=== PATIENT | male | born 1960 | race Caucasian/White ===

== ENCOUNTER 2020-10-05 17:37 | Emergency (ER) | payer BC, SELFPAY ==
--- NOTE | ~2020-10-05 | XR_ITS ---
EXAMINATION: XR chest 1V portable DATE: 10/05/2020 18:29 INDICATION: Chest pain and tightness, shortness of breath. TECHNIQUE: frontal view of the chest was obtained. COMPARISON: Chest radiograph dated 05/01/2005 FINDINGS: The lungs remain clear with no focal airspace opacities, pulmonary edema, pleural effusion or pneumot horax. The cardiomediastinal silhouette is normal. Visualized bones and soft tissues are unremarkable . IMPRESSION: 1. No acute cardiopulmonary disease. Reviewed, dictated and finalized at location H. UCE SERVICE TEAM MEMBER
[2020-10-05 17:46] VITALS: BP 145/80; PULSE 105; RESP 20; TEMP 36.6; O2SAT 95
--- NOTE | 2020-10-05 17:46 | ECG_ITS ---
Measurements Intervals [place] Rate: 80 P: 32 MA: 192 QRS: -41 QRSD: 114 T: 55 QT: 357 QTc: 414 Interpretive Statements SINUS RHYTHM LEFT AXIS DEVIATION INTRAVENTRICULAR CONDUCTION DELAY BORDERLINE R WAVE PROGRESSION, ANTERIOR LEADS BORDERLINE ECG Electronically Signed On 10-05-2020 18:55:08 DIRECTOR WEB by Wilbert Guaman D.O.
[2020-10-05 18:17] LABS: Basophils Absolute Auto 0.04 K/mm3 (0.00-0.10); Basophils Percent Auto 0.6 % (0.0-1.0); Eosinophils Absolute Auto 0.02 K/mm3 (0.02-0.50); Eosinophils Percent Auto 0.3 % (1.0-6.0); Hematocrit 47.9 % (40.0-54.0); Hemoglobin 17.4 g/dL (14.0-18.0); Immature Granulocyte Absolute 0.18 K/mm3 (0.00-0.00); Immature Granulocyte Percent A 2.5 % (0.0-0.0); Lymphocytes Absolute Auto 0.87 K/mm3 (1.10-4.50); Mean Corpuscular HGB Conc 36.3 g/dL (32.0-36.0); Mean Corpuscular Hemoglobin 34.5 pg (27.0-31.0); Mean Corpuscular Volume 94.9 fL (78.0-102.0); Mean Platelet Volume 10.3 fl (8.7-11.0); Monocytes Absolute Auto 0.72 K/mm3 (0.10-0.90); Monocytes Percent Auto 9.9 % (2.0-11.0); Neutrophils Absolute Auto 5.4 K/mm3 (1.7-7.2); Neutrophils Percent Auto 74.7 % (50.0-70.0); Platelet Count Result 176 K/mm3 (150-420); Red Blood Count 5.05 M/mm3 (4.70-6.10); White Blood Count 7.3 K/mm3 (4.8-10.8)
[2020-10-05 18:18] LABS: Base Excess ABG -0.1 mmol/L (0-2); HCO3 ABG 23.1 mmol/L (23-29); Oxygen Content ABG 23.8 %vol (16.0-22.0); Oxygen Saturation ABG 96.3 % (95-97); Oxyhemoglobin 95.8 % (94-100); PCO2 ABG 34.3 mmHg (35-45); PO2 ABG 76.4 mmHg (80-90); Total Hemoglobin 17.7 g/dL; pH ABG 7.45 (7.35-7.45)
[2020-10-05 18:19] LABS: Device ROOM AIR; Modified Allen's Test Pass; Site Drawn RIGHT RADIAL
[2020-10-05 18:32] LABS: D Dimer 0.29 mg/L (0.19-0.50)
[2020-10-05 18:34] LABS: Anion Gap 9 mmol/L (8-16); Blood Urea Nitrogen 17 mg/dL (7-18); Calcium 8.6 mg/dL (8.5-10.1); Carbon Dioxide 26 mmol/L (21-32); Chloride 99 mmol/L (98-108); Estimated CRCL calculation 72 ml/min; Estimated Glomerular Filt Rate 59; Glucose 163 mg/dL (70-99); Osmolality Calculated 283 mOsm/kg (285-295); Potassium 3.4 mmol/L (3.5-5.1); Sodium 134 mmol/L (136-145)
[2020-10-05 18:35] LABS: Troponin I < 0.02 ng/mL (0.00-0.056)
[2020-10-05 18:38] LABS: BNP 15 pg/mL (0-100)
--- NOTE | 2020-10-05 19:07 | ED.GENADULT ---
HPI - General Adult General Chief complaint: Chest Pain Stated complaint: tightness in chest Source: patient Mode of arrival: ambulatory Limitations: no limitations History of Present Illness HPI narrative: Patient wishes to be seen due to diagnosis of Covid, and concerns he may be getting worse. He had some mild abdominal discomfort which he calls tightness. He evidently call his doctors office and was told to come in to be seen. Discomfort is mild, ongoing, not associated with and chest pain or shortness of breath, and not relieved by measures taken at home. This has been going on since early this am< for several hours. Related Data Home Medications Medication Instructions Recorded Confirmed abatacept [Orencia] 125 mg SUBCUT WEEKLY 10/05/20 10/05/20 amlodipine 10 mg PO DAILY 10/05/20 10/05/20 folic acid 1 mg PO DAILY 10/05/20 10/05/20 hydrochlorothiazide 25 mg PO DAILY 10/05/20 10/05/20 losartan 50 mg PO DAILY 10/05/20 10/05/20 methotrexate sodium 15 mg PO WEEKLY 10/05/20 10/05/20 prednisone 5 mg PO DAILY 10/05/20 10/05/20 Allergies Allergy/AdvReac Type Severity Reaction Status Date / Time No Known Allergies Allergy Verified 10/05/20 17:55 Review of Systems Constitutional: Constitutional: Reports no additional constitutional complaints Eyes: Eyes: Reports no additional eye complaints ENT: Reports system reviewed and no additional complaints, except as documented Cardiovascular: Cardiovascular: Reports no additional cardiovascular complaints Respiratory: Respiratory: Reports no additional respiratory complaints Gastrointestinal: Gastrointestinal: Reports no additional gastrointestinal complaints Genitourinary: Genitourinary: Reports no additional male genitourinary complaints Musculoskeletal: Musculoskeletal: Reports no additional musculoskeletal complaints Integumentary/Breasts: Skin/Breast: Reports system reviewed and no additional complaints, except as docu Neurologic: Reports system reviewed and no additional complaints, except as documented Psychiatric: Psychiatric: Reports no additional psychiatric complaints Endocrine: Endocrine: Reports no additional endocrine complaints Hematologic/Lymphatic: Hematologic/Lymphatic: Reports no additional hematologic/lymphatic complaints Allergic/Immunologic: Allergic/Immunologic: Reports no additional allergic/immunologic complaints [facility] Past Medical History Medical History HTN (hypertension) Rheumatoid arthritis Surgical History Surgical History (Updated 10/06/20 @ 02:21 by David Cloud MD) No significant past surgical history Exam Const: General: no acute distress and alert Orientation/consciousness: patient oriented x3 HENMT: Head: normal to inspection Ears: TM abnormal General nose exam: Normal external nose present and Normal nares present Face and sinus: normal facial exam and sinuses nontender Mouth: Yes Normal oral and palatal mucosa present Teeth and gingiva: dentition normal Throat: posterior oropharynx normal Eyes: Conjunctivae: conjunctivae normal Pupils: Equal, round and reactive pupils present Neck: Neck: normal visual inspection and no lymphadenopathy Chest: Chest palpation & inspection: normal inspection of the chest Resp: Effort & Inspection: normal respiratory effort Auscultation: clear to auscultation bilaterally Cardio: Rate: regular rate Rhythm: regular rhythm GI: GI Palp: Yes Soft to palpation Other: nontender Skin: General skin exam: normal color Neuro: General: patient oriented x3 and moves all extremities Extrem: General: normal to inspection Psych: Mental Status: mental status grossly normal Affect: normal affect Attitude: cooperative Course Course Emergency Course: Labs, chest X ray, ABG reviewed with patient. He seems to be doing very well and can safely go home. Vital Signs Vital signs: Vital Signs Temperature 36.6 C 11
[2020-10-05 19:15] VITALS: BP 151/91; PULSE 90; RESP 18; O2SAT 95
== END 2020-10-05 19:18 | disposition home or self-care (01) ==
PROVIDERS: Emergency Provider Emergency Medicine
DX: U07.1 COVID-19 (principal); I10 Essential (primary) hypertension; M06.9 Rheumatoid arthritis, unspecified
CPT/HCPCS: 36415; 36600; 71045; 80048; 82805; 83880; 84484; 85025; 85380; 93005; 99283; 99284

== ENCOUNTER 2020-10-09 09:01 | Observation (INO) | payer BC, SELFPAY ==
[2020-10-09] VITALS (11 sets, daily range): BP systolic 100–147; BP diastolic 54–92; PULSE 69–100; RESP 16–20; TEMP 36.2–38.1; O2SAT 91–93; BMI 37.3
--- NOTE | ~2020-10-09 | CT_ITS ---
EXAMINATION: CT brain wo con EXAM DATE: 10/09/2020 09:59 INDICATION: head injury Syncope. TECHNIQUE: Spiral CT of the head was performed without contrast. Axial, coronal and sagittal images were reviewed. The dose-length product (DLP) for this examination was 605.33 mGy-cm. The exposure w as tailored according to patient size, and iterative reconstruction (ASIR) was used as additional dos e reduction technique. There is no prior study for comparison. FINDINGS: Nasal acute bone fractures. There is no acute intraparenchymal hemorrhage. No evidence of intraparenchymal brain mass lesion. No evidence of acute infarction. There is no mass effect or mid line shift. The ventricles are normal in size. There are no extra-axial collections. There are no acute calvarial fractures. The orbits are unremarkable. Soft tissue is unremarkable. The visualized sinuses and mastoid air cells are well aerated. IMPRESSION: 1. No acute intracranial findings. 2. Acute nasal bone fractures. Reviewed, dictated and finalized at location A. WORKER APPRENTICE
--- NOTE | ~2020-10-09 | XR_ITS ---
EXAMINATION: XR chest 1V portable EXAM DATE: 10/09/2020 09:58 INDICATION: Shortness of breath. TECHNIQUE: Portable AP frontal chest x-ray was obtained. Comparison is made to prior examination from 10/05/2020. FINDINGS: Suspect interval development of small amount of patchy ill-defined bilateral perihilar acut e airspace disease, likely infection or edema. Cardiomediastinal silhouette is normal. There is no pn eumothorax suspected. There are no pleural effusions. There are no osseous abnormalities identified. IMPRESSION: Suspect developing bilateral ill-defined acute airspace disease, consider edema or infect ion. Reviewed, dictated and finalized at location A. SYSTEMS ANALYST IMPRESSION: Suspect developing bilateral ill-defined acute airspace disease, co nsider edema or infection.
--- NOTE | ~2020-10-09 | CT_ITS ---
EXAMINATION: CT facial & cervical spine wo EXAM DATE: 10/09/2020 10:00 INDICATION: Face and neck injury. Nose pain, neck pain. TECHNIQUE: Spiral CT of the facial bones was acquired in the axial plane. Coronal reformatted images were also reviewed. Spiral CT of the cervical spine was performed without contrast. Axial images we re reviewed. Coronal and sagittal reformatted images were also reviewed. The dose-length product (DL P) for this examination was 490.03 mGy-cm. The exposure was tailored according to patient size, and iterative reconstruction (ASIR) was used as additional dose reduction technique. There is no prior s tudy for comparison. FINDINGS: FACIAL CT: There are acute depressed bilateral nasal bone fractures, with mild rightward angulation. Small nasal septal fracture also suspected. Mild ethmoid mucoperiosteal thickening. Sinuses are inta ct, no air-fluid levels. There is right-sided florencia bullosa. The orbits, globes and extraocular musc les are unremarkable. The visualized sinuses and mastoid air cells are well aerated. CERVICAL CT: There is no evidence of acute cervical fracture. The odontoid process is intact. Pre-d ens space is normal. Prevertebral soft tissue is normal. There are no soft tissue abnormalities day ntified. There is no disc space widening or traumatic vertebral body subluxation suspected. Overall moderate cervical facet arthropathy, and C5-6 disc disease. A detailed level by level evaluation of spondylosis can be added as addendum if requested. IMPRESSION: 1. Acute nasal bone fractures with some depression, rightward angulation. Acute nondisplaced nasal s eptal fracture. 2. Moderate cervical spondylosis without fracture. Reviewed, dictated and finalized at location A. BILITATION ENGINEER IMPRESSION: 1. Acute nasal bone fractures with some depression, rightward angulation. Acut e nondisplaced nasal septal fracture. 2. Moderate cervical spondylosis without fracture.
--- NOTE | ~2020-10-09 | CT_ITS ---
EXAMINATION: CTA chest PE protocol DATE: 10/09/2020 16:07 INDICATION: COVID positive presenting with shortness of breath and positive d-dimer post syncopal epi sode with fall. TECHNIQUE: Computed tomography (CT) pulmonary angiogram of the chest was performed with 100 mL Omnipa que-350 intravenous contrast. Additional 3D reconstructions utilizing coronal maximum intensity proje ction (MIP) were performed. Automated exposure control and iterative reconstruction technique were em ployed. The dose-length product was 888.44 mGy-cm. COMPARISON: None FINDINGS: Good contrast opacification of the pulmonary arteries. There is mild to moderate streak artifact from dense contrast in the superior vena cava and right atrium. Mild to moderate scattered respiratory mo tion artifact. There are multiple bilateral patchy regions of consolidation groundglass opacity with perihilar and lower lung predominance. Together with the previous noted artifact this moderately decr eases sensitivity and specificity in the subsegmental pulmonary arteries. No definitive pulmonary emb olism identified. No smooth septal line thickening to suggest pulmonary edema. No pleural effusion. H eart size is normal. Atherosclerotic coronary artery calcifications. No pericardial effusion. Multipl e mildly prominent bilateral hilar and mediastinal lymph nodes, all measuring less than 1 cm in maxim al short axis diameter and likely reactive. Thoracic aorta is normal in caliber with no dissection. V isualized upper abdomen is unremarkable. Mild thoracic spondylosis. No acute fractures identified. IMPRESSION: 1. Patchy bilateral groundglass opacities and consolidation with perihilar and lower lung predominanc e but without septal line thickening to suggest pulmonary edema is most likely related to multifocal pneumonia. 2. No pulmonary embolism with sensitivity moderately decreased in the smaller subsegmental pulmonary arteries due to combination of motion streak artifact and the adjacent lung disease. Reviewed, dictated and finalized at location H. H GATHERER IMPRESSION: 1. Patchy bilateral groundglass opacities and consolidation with perihilar and lower lung predominance but without septal line thickening to suggest pulmonary edema is most likely related to multifocal pneumonia. 2. No pulmonary embolism with sensitivity moderately decreased in the smaller s ubsegmental pulmonary arteries due to combination of motion streak artifact and the adjacent lung disease.
--- NOTE | 2020-10-09 09:19 | ECG_ITS ---
Measurements Intervals [place] Rate: 77 P: 5 [place]: 184 QRS: -45 QRSD: 113 T: 120 QT: 330 QTc: 374 Interpretive Statements SINUS RHYTHM POSSIBLE LEFT ATRIAL ENLARGEMENT INCOMPLETE RIGHT BUNDLE BRANCH BLOCK LEFT ANTERIOR FASCICULAR BLOCK BORDERLINE T WAVE ABNORMALITY- LAT/HIGH LAT LEADS BASELINE ARTIFACT- I, II, III, AVR, AVL, AVF, V1-V6 ABNORMAL ECG Electronically Signed On 10-11-2020 7:29:00 SUPERVISOR PARTIAL DENTURE DEPARTMENT by Wilbert Guaman D.O.
[2020-10-09 09:41] LABS: Basophils Absolute Auto 0.03 K/mm3 (0.00-0.10); Basophils Percent Auto 0.6 % (0.0-1.0); Eosinophils Absolute Auto 0.01 K/mm3 (0.02-0.50); Eosinophils Percent Auto 0.2 % (1.0-6.0); Hematocrit 47.8 % (40.0-54.0); Hemoglobin 17.2 g/dL (14.0-18.0); Immature Granulocyte Absolute 0.13 K/mm3 (0.00-0.00); Immature Granulocyte Percent A 2.4 % (0.0-0.0); Immature Platelet Fraction Pct 3.2 % (1.0-7.0); Lymphocytes Absolute Auto 0.94 K/mm3 (1.10-4.50); Lymphocytes Percent Auto 17.2 % (18.0-42.0); Mean Corpuscular Volume 94.5 fL (78.0-102.0); Mean Platelet Volume 10.6 fl (8.7-11.0); Monocytes Absolute Auto 0.74 K/mm3 (0.10-0.90); Monocytes Percent Auto 13.6 % (2.0-11.0); Neutrophils Absolute Auto 3.6 K/mm3 (1.7-7.2); Platelet Count Result 112 K/mm3 (150-420); Red Blood Count 5.06 M/mm3 (4.70-6.10); Red Cell Distribution Width 13.2 % (11.6-14.4); White Blood Count 5.5 K/mm3 (4.8-10.8)
[2020-10-09 09:51] LABS: INR 1.1; Partial Thromboplastin Time 29.7 SEC (22.3-31.6); Prothrombin Time 11.1 Seconds (9.64-11.0)
[2020-10-09 09:58] LABS: Alanine Aminotransferase 60 U/L (16-63); Albumin Level 3.3 g/dL (3.4-5.0); Alkaline Phosphatase 84 U/L (46-116); Anion Gap 11 mmol/L (8-16); Aspartate Amino Transferase 46 U/L (15-37); Bilirubin,Total 1.1 mg/dL (0.00-1.00); Blood Urea Nitrogen 18 mg/dL (7-18); Calcium 8.3 mg/dL (8.5-10.1); Carbon Dioxide 26 mmol/L (21-32); Chloride 97 mmol/L (98-108); Estimated CRCL calculation 61 ml/min; Estimated Glomerular Filt Rate 59; Glucose 122 mg/dL (70-99); Osmolality Calculated 280 mOsm/kg (285-295); Potassium 3.4 mmol/L (3.5-5.1); Sodium 134 mmol/L (136-145); Total Protein 7.2 g/dL (6.4-8.2)
[2020-10-09 10:00] LABS: Lactic Acid Reflex 1.5 mmol/L (0.4-2.0)
[2020-10-09 10:15] LABS: Troponin I < 0.02 ng/mL (0.00-0.056)
[2020-10-09] MEDS: SODIUM CHLORIDE 0.9% IV 1,000 ML 999 ML IV CONT (10:37)
--- NOTE | 2020-10-09 11:13 | ED.GENADULT ---
HPI - General Adult General Chief complaint: Unspecified Stated complaint: fall Source: patient Mode of arrival: ambulatory Limitations: no limitations History of Present Illness HPI narrative: This is a 60-year-old gentleman presents after he had a syncopal episode earlier this morning while is the bathroom and fell and hit his head and face causing nasal bleeding / his found him and brought him to the emergency department. The patient was diagnosed with COVID and his been in isolation for the last couple of weeks today was supposed to be his last day of isolation. Was seen in our emergency department approximately 3 days ago for abdominal pain discomfort and his blood pressure at that time was 150s systolic. The patient currently denies any chest pain, no shortness of breath currently no fever chills no headaches no nausea vomiting no blurry vision. Patient had some epistaxis after a fall hitting his face and nasal bones. Patient currently has chills with no dysuria, has some dry cracked lips and states that he has been drinking enough fluids. Onset (ago): hour(s) Location: face Radiation: non-radiation Severity: mild Related Data Home Medications Medication Instructions Recorded Confirmed abatacept [Orencia] 125 mg SUBCUT WEEKLY 10/05/20 10/09/20 amlodipine 10 mg PO DAILY 10/05/20 10/09/20 folic acid 1 mg PO DAILY 10/05/20 10/09/20 hydrochlorothiazide 25 mg PO DAILY 10/05/20 10/09/20 losartan 50 mg PO DAILY 10/05/20 10/09/20 methotrexate sodium 15 mg PO WEEKLY 10/05/20 10/09/20 prednisone 5 mg PO DAILY 10/05/20 10/09/20 aspirin [Adult Aspirin] 81 mg PO DAILY 10/09/20 10/09/20 Allergies Allergy/AdvReac Type Severity Reaction Status Date / Time No Known Allergies Allergy Verified 10/05/20 17:55 Review of Systems Review of Systems: All systems reviewed & are unremarkable except as noted in HPI and below PMFSH Past Medical History Medical History HTN (hypertension) Rheumatoid arthritis Surgical History Surgical History No significant past surgical history Social History Social History Gender identity (if verbalized by the patient): Male Sexual Orientation (if Verbalized by the Patient): Straight or Heterosexual Exam Const: General: cooperative, no acute distress and ill appearing HENMT: Head: normal to inspection Ears: hearing grossly normal bilaterally General nose exam: Other nasal findings present ( Epistaxis) Face and sinus: Facial tenderness on exam of face and sinuses Face images: 1. abrasions and deformity the bridge of nose Mouth: Yes Normal oral and palatal mucosa present and Yes other ( dry cracked lips) Throat: posterior oropharynx normal Eyes: General: appearance normal, both eyes and all related structures Conjunctivae: conjunctivae normal Sclera: sclerae normal Pupils: Equal, round and reactive pupils present EOM: EOMs intact bilaterally Neck: Neck: normal visual inspection Chest: Chest palpation & inspection: normal inspection of the chest and normal palpation of entire chest wall Resp: Effort & Inspection: normal respiratory effort and able to speak in complete sentences Cardio: Jugular venous distension: no JVD GI: Inspection: normal to inspection Back/Spine/Pelvis: Back: no CVA tenderness Skin: General skin exam: normal color Neuro: General: oriented to person, oriented to place, oriented to time, patient oriented x3, gait normal, tone normal and moves all extremities Psych: Appearance: grossly normal and well kempt Mental Status: mental status grossly normal Course Course Emergency Course: reassessment patient continues to feel little tired and weak, reviewed blood pressure on October 05, 2020 and his systolic pressures were 150 systolic, currently his blood pressure is 108/70 with 0 o
--- NOTE | 2020-10-09 11:28 | PC.NURSE ---
notified of admit to obs bed ([id number] tayp)
[2020-10-09 11:56] LABS: Influenza Control Valid (Valid)
--- NOTE | 2020-10-09 12:15 | ADMGEN ---
This patient, Feliz Mcgovern, was admitted to 2nd Floor Room 210-1. Patient/family oriented to hospital policies and general routines including ID bracelet, bed and alarms, visiting hours, pain management, procedures, bathroom and other care routines, personal items, smoking policy, room service/diet, and visiting hours. Information on how to activate the Rapid Response Team has been discussed. Patient/Family are encouraged to report perceived risks to care and to ask questions if they do not understand what they are told or what they should do.
[2020-10-09 12:16] LABS: SARS-CoV-2 Ag Positive (Negative)
[2020-10-09] MEDS: ACETAMINOPHEN 325 MG TABLET 650 MG PO ×2 (13:22→21:21)
[2020-10-09] MEDS: SODIUM CHLORIDE 0.9% IV 1,000 ML 100 ML IV CONT (13:22)
--- NOTE | 2020-10-09 13:33 | PM.IMHP ---
H&P: HPI History of Present Illness Date/Time: 10/09/20 13:33 Chief complaint: fall Narrative: Feliz Mcgovern is a 60 year old male that presented to the ED today post syncopal episode at home. Patient has a past medical history of hypertension and rheumatoid arthritis. According to the patient while in the bathroom attempting to urinate he felt dizzy and sat down on the toilet to urinate when he woke up he was on the floor. Patient was diagnosed with Covid a couple of weeks ago this will be his last day of quarantine. He noted that today was the first time experiencing dizziness, fever, urinary hesitancy, chills and diarrhea. Patient also sustained a nasal bone fracture. He has a abrasion on the bridge of his nose and his right eye is slightly swollen. Patient denies any visual deficiency. Patient also noted that he has had chills he also noted that he experienced abdominal pain when he had diarrhea. Patient is being admitted for syncopal episode, pneumonia, Covid, dehydration Review of Systems Review of Systems: All systems reviewed & are unremarkable except as noted in HPI and below (10 point system review) FOR[facility]LY [facility] Past Medical History Medical History HTN (hypertension) Rheumatoid arthritis Surgical History Surgical History No significant past surgical history Social History Social History Gender identity (if verbalized by the patient): Male Sexual Orientation (if Verbalized by the Patient): Straight or Heterosexual Meds Home Medications and Allergies Home Medications Medication Instructions Recorded Confirmed Type abatacept [Orencia] 125 mg SUBCUT WEEKLY 10/05/20 10/09/20 History amlodipine 10 mg PO DAILY 10/05/20 10/09/20 History folic acid 1 mg PO DAILY 10/05/20 10/09/20 History hydrochlorothiazide 25 mg PO DAILY 10/05/20 10/09/20 History losartan 50 mg PO DAILY 10/05/20 10/09/20 History methotrexate sodium 15 mg PO WEEKLY 10/05/20 10/09/20 History potassium chloride 20 meq PO DAILY #90 tablet 10/05/20 10/09/20 Rx prednisone 5 mg PO DAILY 10/05/20 10/09/20 History aspirin [Adult Aspirin] 81 mg PO DAILY 10/09/20 10/09/20 History Allergies Allergy/AdvReac Type Severity Reaction Status Date / Time No Known Allergies Allergy Verified 10/05/20 17:55 Vital Signs Vital Signs - 24 hr 10/09/20 09:34 10/09/20 09:39 10/09/20 11:33 Temperature 97.1 F L Pulse Rate 98 100 87 Respiratory Rate 16 16 20 Blood Pressure 108/70 100/75 143/77 H Pulse Oximetry 93 91 10/09/20 11:50 10/09/20 13:22 Temperature 98 F 100.6 F H Pulse Rate 75 Respiratory Rate 18 Blood Pressure 131/54 L Pulse Oximetry 92 Exam Narrative: Exam Narrative: GENERAL: This is a well-nourished, well-developed patient, in no apparent distress. HEAD: normocephalic, atraumatic. EYES: PERRL. Sclera clear/white. Vision is grossly intact. EARS: External ears normal, auditory canals clear and without drainage, TMs normal without perforation. Hearing grossly intact. NOSE: External nose normal with no obvious nasal discharge, nares without redness, no rhinorrhea. THROAT: Mucous membranes moist, posterior pharynx clear. NECK: Neck supple, non-tender without lymphadenopathy, masses or thyromegaly. CARDIOVASCULAR: Regular rate and rhythm without murmurs, gallops, or rubs. RESPIRATORY: Diminished breath sounds with wheezing GASTROINTESTINAL: Abdomen soft, non-tender, nondistended. Bowel sounds are active. No hepato-splenomegaly, or palpable masses. No guarding. SKIN: Abrasion to bridge of nose, edematous right eye NEURO: awake, alert, and oriented to person, place and time. There were no obvious focal neurologic abnormalities. Steady gait EXTREMITIES: Normal range of motion. No edema. No calf tenderness. Negative Homans sign bilaterally. BACK: Nontender without deformity or
[2020-10-09] MEDS: predniSONE 20 MG TABLET 60 MG PO (14:35)
[2020-10-09 14:40] LABS: D Dimer 0.86 mg/L (0.19-0.50)
[2020-10-09 14:55] LABS: BNP < 5.0 pg/mL (0-100)
[2020-10-09] MEDS: BUDESONIDE/FORMOTEROL 80/4.5 MCG 6.9 GM INHALER (*SP) 2 PUFF INHALATION (17:44)
[2020-10-09] MEDS: BENZONATATE 100 MG CAPSULE 200 MG PO (17:44)
[2020-10-09 20:34] LABS: Add Urine Microscopic? NO; Appearance Urine Clear (Clear); Bilirubin Urine Negative (Negative); Blood Urine Negative (Negative); Color Urine Yellow (Yellow); Glucose Urine UA Negative (Negative); Ketones Urine Negative (Negative); Leukocyte Esterase Ur Negative LEU/UL (Negative); Nitrate Urine Negative (Negative); Protein Urine Negative (Negative); Urobilinogen Urine 0.2 mg/dL (0.2-1.0); pH Urine 6.5 (5.0-8.0)
[2020-10-09] MEDS: guaiFENesin 12 HR 600 MG TABCR PO (21:21)
[2020-10-10] VITALS (16 sets, daily range): BP systolic 103–149; BP diastolic 56–88; PULSE 46–71; RESP 18–20; TEMP 35.6–36.5; O2SAT 92–95
[2020-10-10] MEDS: SODIUM CHLORIDE 0.9% IV 1,000 ML 100 ML IV CONT (00:09)
--- NOTE | 2020-10-10 03:10 | PC.NURSE ---
Dr. Story notified of pt's inverted T-wave; No new orders at this time.
--- NOTE | 2020-10-10 03:10 | PC.NURSE ---
Heart rate on telemetry staying in the 40s and going down to the 30s while the patient is sleeping and his t-wave now appears inverted. Patient denies chest pain, SOB, nausea, or weakness. Vital signs were taken. Charge nurse notified.
[2020-10-10 05:34] LABS: Basophils Absolute Auto 0.02 K/mm3 (0.00-0.10); Basophils Percent Auto 0.3 % (0.0-1.0); Hematocrit 41.2 % (40.0-54.0); Hemoglobin 14.6 g/dL (14.0-18.0); Immature Granulocyte Absolute 0.09 K/mm3 (0.00-0.00); Immature Granulocyte Percent A 1.5 % (0.0-0.0); Lymphocytes Absolute Auto 0.82 K/mm3 (1.10-4.50); Lymphocytes Percent Auto 13.3 % (18.0-42.0); Mean Corpuscular HGB Conc 35.4 g/dL (32.0-36.0); Mean Corpuscular Hemoglobin 33.9 pg (27.0-31.0); Mean Corpuscular Volume 95.6 fL (78.0-102.0); Mean Platelet Volume 10.4 fl (8.7-11.0); Monocytes Absolute Auto 0.57 K/mm3 (0.10-0.90); Monocytes Percent Auto 9.2 % (2.0-11.0); Neutrophils Absolute Auto 4.7 K/mm3 (1.7-7.2); Neutrophils Percent Auto 75.7 % (50.0-70.0); Platelet Count Result 100 K/mm3 (150-420); Red Blood Count 4.31 M/mm3 (4.70-6.10); Red Cell Distribution Width 13.1 % (11.6-14.4); White Blood Count 6.2 K/mm3 (4.8-10.8)
[2020-10-10] MEDS: BUDESONIDE/FORMOTEROL 80/4.5 MCG 6.9 GM INHALER (*SP) 2 PUFF INHALATION ×2 (05:44→17:41)
[2020-10-10 05:53] LABS: Alanine Aminotransferase 52 U/L (16-63); Albumin Level 2.7 g/dL (3.4-5.0); Alkaline Phosphatase 70 U/L (46-116); Anion Gap 7 mmol/L (8-16); Aspartate Amino Transferase 33 U/L (15-37); Bilirubin,Total 0.7 mg/dL (0.00-1.00); Blood Urea Nitrogen 12 mg/dL (7-18); Calcium 7.9 mg/dL (8.5-10.1); Carbon Dioxide 28 mmol/L (21-32); Chloride 103 mmol/L (98-108); Estimated CRCL calculation 81 ml/min; Estimated Glomerular Filt Rate > 60; Glucose 120 mg/dL (70-99); Osmolality Calculated 286 mOsm/kg (285-295); Potassium 3.7 mmol/L (3.5-5.1); Sodium 138 mmol/L (136-145); Total Protein 5.8 g/dL (6.4-8.2)
[2020-10-10 06:06] LABS: Troponin I < 0.02 ng/mL (0.00-0.056)
--- NOTE | 2020-10-10 08:36 | PM.IMPN ---
Progress Note: A&P Assessment and Plan (1) Pneumonia: Qualifiers: Laterality: bilateral Lung location: lower lobe of lung Pneumonia type: due to unspecified organism Qualified Code(s): J18.9 - Pneumonia, unspecified organism Code(s): J18.9 - Pneumonia, unspecified organism Status: Acute Assessment and Plan: Improved w/ IV abx (ROcephin + Azithromycin), WBC remains normal. Patient has been afebrile but still weak. COuld benefit from an additional 24 hours of IV abx. Plan to d/c home tomorrow on PO Abx (2) COVID-19: Code(s): U07.1 - COVID-19 Status: Acute Assessment and Plan: Initially positive COVID swab on 09/24, started quarantine for 2 weeks with an end date of 10/09. Presented to ED on 10/09 after a fall when a repeat Rapid COVID-19 swab showed a repeat positive. Patient has nonspecific symptoms. Will check w/ Infection control nurse in am regarding need for quarantine. (3) Acute dehydration: Code(s): E86.0 - Dehydration Status: Resolved Assessment and Plan: Improved after IVF. BUN and CReat back to normal. D/C IVF and continue to follow. Patient tolerating PO intake well. (4) Syncopal episodes: Code(s): R55 - Syncope and collapse Status: Acute Assessment and Plan: Likely vasovagal in origin. Exhaustive w/u negative for anything acute. FOllowing (5) Nasal bone fractures: Code(s): S02.2XXA - Fracture of nasal bones, initial encounter for closed fracture Status: Acute Assessment and Plan: OUtpt follow up w/ ENT after discharge (6) Hypertension: Code(s): I10 - Essential (primary) hypertension Status: Acute Assessment and Plan: COntrolled on current regimen of meds (7) Rheumatoid arthritis: Code(s): M06.9 - Rheumatoid arthritis, unspecified Status: Acute Assessment and Plan: Was on Methotrexate and prednisone(low dose) in addition to Orencia s/c qweekly at [facility]. Currently only on prednisone. Will continue outpt f/u upon discharge. Subjective Date/time seen: 10/10/20 08:36 60 year old male w/ known h.o HTN, RA who presented to the ED 10/09/20 after a syncopal episode at home. According to the patient while in the bathroom attempting to urinate he felt dizzy and sat down on the toilet to urinate when he woke up he was on the floor. Patient was diagnosed with Covid-19 a couple of weeks ago, his last day of quarantine was supposed to be sunday10/09/20. He noted that today was the first time experiencing dizziness, fever, urinary hesitancy, chills and diarrhea. Patient was evaluated in our ER and diagnosed w/ Syncopal episode, a Nasal Bone Fracture w/ Abrasion to bridge of nose, CAP, repeat COVID-19 swabs showed he is still positive, Mild Dehydration in addition to his chronic medical illness. Patient denies any visual deficiency. Review of Systems Constitutional: Constitutional: Denies chills, Denies difficulty sleeping and Reports weakness Eyes: Eyes: Reports no additional eye complaints ENT: Reports system reviewed and no additional complaints, except as documented Cardiovascular: Cardiovascular: Reports no additional cardiovascular complaints Respiratory: Respiratory: Reports chest congestion, Reports cough, Denies hemoptysis, Denies dyspnea and Denies wheezing Gastrointestinal: Gastrointestinal: Reports no additional gastrointestinal complaints Genitourinary: Genitourinary: Reports no additional male genitourinary complaints Musculoskeletal: Musculoskeletal: Reports no additional musculoskeletal complaints Integumentary/Breasts: Skin/Breast: Reports wounds Neurologic: Reports system reviewed and no additional complaints, except as documented Psychiatric: Psychiatric: Reports no additional psychiatric complaints Exam Const: General: no acute distress Eyes: General: appearance normal, both eyes and all related structures
[2020-10-10] MEDS: guaiFENesin 12 HR 600 MG TABCR PO ×2 (08:50→20:03)
[2020-10-10] MEDS: POTASSIUM CHLORIDE 20 MEQ TABLET PO (08:50)
[2020-10-10] MEDS: predniSONE 20 MG TABLET 40 MG PO (08:50)
[2020-10-10] MEDS: FOLIC ACID 1 MG TABLET PO (08:50)
[2020-10-10] MEDS: BENZONATATE 100 MG CAPSULE 200 MG PO ×3 (08:50→17:04)
[2020-10-10] MEDS: ENOXAPARIN 40 MG/0.4 ML SYRINGE SUB-Q (08:50)
[2020-10-10] MEDS: PANTOPRAZOLE SOD SESQUIHYDRATE 20 MG TAB PO (08:51)
[2020-10-10] MEDS: LOSARTAN POTASSIUM 50 MG TABLET PO (08:51)
[2020-10-10 09:18] LABS: Troponin I < 0.02 ng/mL (0.00-0.056)
--- NOTE | 2020-10-10 09:19 | ECG_ITS ---
Measurements Intervals [place] Rate: 53 P: 31 IN: 212 QRS: -29 QRSD: 114 T: 0 QT: 462 QTc: 434 Interpretive Statements SINUS BRADYCARDIA WITH FIRST DEGREE AV BLOCK INCOMPLETE RIGHT BUNDLE BRANCH BLOCK BORDERLINE T WAVE ABNORMALITY- DIFFUSE LEADS ABNORMAL ECG Electronically Signed On 10-11-2020 7:30:04 [employer] by Wilbert Guaman D.O.
--- NOTE | 2020-10-10 21:55 | PC.NURSE ---
pt given ice cream cup, denies any other needs or complaints at this time.
[2020-10-11 04:00] VITALS: PULSE 45
[2020-10-11 04:55] VITALS: BP 133/82; PULSE 54; RESP 18; O2SAT 93
[2020-10-11] MEDS: BUDESONIDE/FORMOTEROL 80/4.5 MCG 6.9 GM INHALER (*SP) 2 PUFF INHALATION (05:48)
[2020-10-11 07:53] VITALS: BP 111/76; PULSE 55; RESP 18; TEMP 36.7; O2SAT 95
[2020-10-11 07:54] VITALS: PULSE 61
[2020-10-11 08:00] VITALS: BP 111/76; PULSE 55
[2020-10-11 08:18] VITALS: BP 124/82; BP 127/77; PULSE 62; PULSE 67
[2020-10-11] MEDS: predniSONE 20 MG TABLET 40 MG PO (09:04)
[2020-10-11] MEDS: BENZONATATE 100 MG CAPSULE 200 MG PO (09:04)
[2020-10-11] MEDS: ENOXAPARIN 40 MG/0.4 ML SYRINGE SUB-Q (09:04)
[2020-10-11] MEDS: FOLIC ACID 1 MG TABLET PO (09:04)
[2020-10-11] MEDS: LOSARTAN POTASSIUM 50 MG TABLET PO (09:05)
[2020-10-11] MEDS: guaiFENesin 12 HR 600 MG TABCR PO (09:05)
[2020-10-11] MEDS: PANTOPRAZOLE SOD SESQUIHYDRATE 20 MG TAB PO (09:05)
[2020-10-11] MEDS: POTASSIUM CHLORIDE 20 MEQ TABLET PO (09:05)
--- NOTE | 2020-10-11 11:25 | PM.SD ---
Same Day Admit/Disch: HPI History of Present Illness Chief complaint: dehydration pneumonia synocope <RIVER Biggs - Last Filed: 10/11/20 12:32> Narrative: Feliz Mcgovern is a 60 year old male who was admitted for syncopal episode that occurred at home. Patient went to the restroom with having difficulty with urination decided to sit down to finish and when he stood back up became lightheaded and passed out hitting his nose and causing a nasal bone fracture. Patient states later on he was standing and fell again and that prompted his to order him to the ER. Patient states the first time this has happened to him. Patient was doing a self quarantine at home as she was positive for COVID. <RIVER Biggs - Last Filed: 10/11/20 12:32> [facility] Past Medical History Medical History: Medical History HTN (hypertension) Rheumatoid arthritis <RIVER Biggs - Last Filed: 10/11/20 12:32> Surgical History Surgical History: Surgical History No significant past surgical history <RIVER Biggs - Last Filed: 10/11/20 12:32> Social History Social History: Social History Years smoked: 10 Smoking status: Former smoker Tobacco type: cigarettes Alcohol intake: never Substance use: never Substance use type: does not use Gender identity (if verbalized by the patient): Male Sexual Orientation (if Verbalized by the Patient): Straight or Heterosexual Spiritual care concerns: No <RIVER Biggs - Last Filed: 10/11/20 12:32> Same Day Admit/Disch: Med Pre-admit Medications Home Medications: Home Medications Medication Instructions Recorded Confirmed Type Orencia 125 mg SUBCUT WEEKLY 10/05/20 10/09/20 History amlodipine 10 mg PO DAILY 10/05/20 10/09/20 History folic acid 1 mg PO DAILY 10/05/20 10/09/20 History hydrochlorothiazide 25 mg PO DAILY 10/05/20 10/09/20 History losartan 50 mg PO DAILY 10/05/20 10/09/20 History methotrexate sodium 15 mg PO WEEKLY 10/05/20 10/09/20 History potassium chloride 20 meq PO DAILY #90 tablet 10/05/20 10/09/20 Rx prednisone 5 mg PO DAILY 10/05/20 10/09/20 History aspirin 81 mg PO DAILY 10/09/20 10/09/20 History azithromycin See Rx Instructions .ROUTE 10/11/20 Rx .COMPLEX #6 tablet <Juve IrmaRIVER Hall - Last Filed: 10/11/20 12:32> Exam Const: General: cooperative, comfortable, no acute distress, alert, awake and Physically active <RIVER Biggs - Last Filed: 10/11/20 12:32> Nutritional Appearance: obese <RIVER Biggs - Last Filed: 10/11/20 12:32> HENMT: General nose exam: no epistaxis <RIVER Biggs - Last Filed: 10/11/20 12:32> Resp: Effort & Inspection: normal respiratory effort <RIVER Biggs - Last Filed: 10/11/20 12:32> Auscultation: clear to auscultation bilaterally and breath sounds absent (Posterior due to body habitus. ) <Juve IrmaRIVER Hall - Last Filed: 10/11/20 12:32> Cardio: Rate: regular rate <RIVER Biggs - Last Filed: 10/11/20 12:32> Rhythm: regular rhythm <Juve IrmaRIVER Hall - Last Filed: 10/11/20 12:32> Heart sounds: S1 normal heart sound present and S2 normal heart sound present <Juve IrmaRIVER Hall - Last Filed: 10/11/20 12:32> Neuro: General: oriented to person, oriented to place and oriented to time <Juve IrmaRENITA HallC - Last Filed: 10/11/20 12:32> Cranial nerves: Yes CN's II-XII intact bilaterally (grossly intact) <RIVER Biggs - Last Filed: 10/11/20 12:32> Extrem: General: pedal edema (trace. ) <RIVER Biggs - Last Filed: 10/11/20 12:32> Psych: Appearance: grossly normal <RIVER Biggs - Last Filed: 10/11/20 12:32> Mental Status: mental status grossly normal <RIVER Biggs - Last Filed:
--- NOTE | 2020-10-18 13:14 | PC.NURSE ---
No discharge call back, pt readmitted.
== END 2020-10-11 13:30 | disposition home or self-care (01) ==
LOC: CHSED 11:27 → CHS2ND 11:45
PROVIDERS: Nurse Practitioner; Admitting Provider Emergency Medicine; Emergency Provider Emergency Medicine; Visit Provider Emergency Medicine
DX: U07.1 COVID-19 (principal); J18.9 Pneumonia, unspecified organism; E86.0 Dehydration; S02.2XXA Fracture of nasal bones, initial encounter for closed fracture; I10 Essential (primary) hypertension; M06.9 Rheumatoid arthritis, unspecified
CPT/HCPCS: 36415; 70450; 70486; 71045; 71275; 72125; 80053; 81003; 83605; 83735; 83880; 84484; 85025; 85055; 85380; 85610; 85730; 87040; 87077; 87186; 87426; 87804; 93005; 96361; 96365; 96366; 96367; 96372; 99285; A9270; G0378; J0456; J0696; J1650; J7030; J7512; Q9965

== ENCOUNTER 2020-10-15 23:22 | Inpatient (IN) | payer BC, SELFPAY ==
--- NOTE | ~2020-10-15 | XR_ITS ---
EXAMINATION: XR chest 2V EXAM DATE: 10/16/2020 00:19 INDICATION: Dyspnea. TECHNIQUE: Frontal and lateral projections of the chest obtained and reviewed. Comparison is made to prior examination from 10/09/2019. FINDINGS: Small to moderate amount of patchy bilateral ill-defined infection and/or atelectasis. Reymundo mmend considering/excluding COVID-19. On prior study there is just small amount of left perihilar air space disease suspected, more opacities have developed since that time. No pneumothorax or pleural ef fusion. Cardiomediastinal silhouette is normal. There are no osseous abnormalities identified. IMPRESSION: Small to moderate amount of patchy bilateral ill-defined infection and/or atelectasis. Re commend considering/excluding COVID-19. Reviewed, dictated and finalized at location A. [employer] IMPRESSION: Small to moderate amount of patchy bilateral ill-defined infection and/or atelectasis. Recommend considering/excluding COVID-19.
[2020-10-15 23:31] VITALS: BP 122/73; PULSE 89; RESP 20; TEMP 36.6; O2SAT 93
--- NOTE | 2020-10-15 23:39 | PC.NURSE ---
patient appears older than stated age
[2020-10-16] VITALS (12 sets, daily range): BP systolic 115–158; BP diastolic 73–88; PULSE 66–102; RESP 14–24; TEMP 35.7–37.1; O2SAT 91–96
[2020-10-16] MEDS: methylPREDNISolone SOD SUCC 125 MG VIAL IV PUSH (00:05)
--- NOTE | 2020-10-16 00:07 | ED.GENADULT ---
HPI - General Adult General Chief complaint: Unspecified Stated complaint: SHORTNESS OF BREATH Source: patient Mode of arrival: ambulatory Limitations: no limitations History of Present Illness HPI narrative: This is a 60-year-old gentleman with a history of hypertension and rheumatoid arthritis who presents with increasing shortness of breath with a nonproductive cough no fevers denies chest pain or chest tightness, with no nausea vomiting no abdominal pain. The patient was recently discharged on 1122 after he was admitted for short-stay for dehydration and pneumonia. The patient was positive for COVID on October 09, 2020 and upon discharge was negative for COVID. Patient was discharged on azithromycin. The patient returns with increasing shortness of breath after reviewing his chart was noted that he had a positive blood culture with Gram-negative Staph coccus. Patient with a history of hypertension and rheumatoid arthritis and when he was admitted on the 11 of October that is when he was dizzy and had a fall causing a fracture of his nasal bones. Onset (ago): day(s) Severity: moderate Associated symptoms: denies other symptoms Related Data Home Medications Medication Instructions Recorded Confirmed Orencia 125 mg SUBCUT WEEKLY 10/05/20 10/15/20 amlodipine 10 mg PO DAILY 10/05/20 10/15/20 folic acid 1 mg PO DAILY 10/05/20 10/15/20 hydrochlorothiazide 25 mg PO DAILY 10/05/20 10/15/20 losartan 50 mg PO DAILY 10/05/20 10/15/20 methotrexate sodium 15 mg PO WEEKLY 10/05/20 10/15/20 prednisone 5 mg PO DAILY 10/05/20 10/09/20 aspirin 81 mg PO DAILY 10/09/20 10/15/20 Allergies Allergy/AdvReac Type Severity Reaction Status Date / Time No Known Allergies Allergy Verified 10/05/20 17:55 Review of Systems Review of Systems: All systems reviewed & are unremarkable except as noted in HPI and below PMFSH Past Medical History Medical History HTN (hypertension) Rheumatoid arthritis Surgical History Surgical History No significant past surgical history Social History Social History Years smoked: 10 Smoking status: Former smoker Tobacco type: cigarettes Alcohol intake: never Substance use: never Substance use type: does not use Gender identity (if verbalized by the patient): Male Sexual Orientation (if Verbalized by the Patient): Straight or Heterosexual Spiritual care concerns: No Exam Const: General: cooperative, comfortable and no acute distress HENMT: Head: normal to inspection Ears: hearing grossly normal bilaterally General nose exam: Other nasal findings present ( Bruising of the bridge of his nose after status post nasal fracture ) Mouth: Yes Normal oral and palatal mucosa present Eyes: General: appearance normal, both eyes and all related structures EOM: EOMs intact bilaterally Neck: Neck: normal visual inspection Chest: Chest palpation & inspection: normal inspection of the chest and normal palpation of entire chest wall Resp: Effort & Inspection: normal respiratory effort Auscultation: diminished lung sounds Cardio: Jugular venous distension: no JVD Palpation: normal PMI Rate: regular rate Rhythm: regular rhythm Heart sounds: S1 normal heart sound present and S2 normal heart sound present GI: Inspection: normal to inspection Percussion: Yes normal to percussion Back/Spine/Pelvis: Back: no CVA tenderness Skin: General skin exam: normal color Neuro: General: oriented to person, oriented to place, oriented to time and patient oriented x3 Psych: Appearance: grossly normal and well kempt Mental Status: mental status grossly normal Speech and movement: Normal speech and movement present Affect: normal affect Course Course Emergency Course: patient with shortness of breath received nebulizer treatment and
[2020-10-16 00:10] LABS: Basophils Absolute Auto 0.02 K/mm3 (0.00-0.10); Basophils Percent Auto 0.3 % (0.0-1.0); Eosinophils Absolute Auto 0.12 K/mm3 (0.02-0.50); Eosinophils Percent Auto 1.9 % (1.0-6.0); Hematocrit 42.5 % (40.0-54.0); Hemoglobin 15.1 g/dL (14.0-18.0); Immature Granulocyte Absolute 0.13 K/mm3 (0.00-0.00); Immature Granulocyte Percent A 2.1 % (0.0-0.0); Lymphocytes Absolute Auto 1.14 K/mm3 (1.10-4.50); Mean Corpuscular HGB Conc 35.5 g/dL (32.0-36.0); Mean Corpuscular Hemoglobin 33.3 pg (27.0-31.0); Mean Corpuscular Volume 93.6 fL (78.0-102.0); Mean Platelet Volume 9.8 fl (8.7-11.0); Monocytes Absolute Auto 0.81 K/mm3 (0.10-0.90); Monocytes Percent Auto 12.8 % (2.0-11.0); Neutrophils Absolute Auto 4.1 K/mm3 (1.7-7.2); Neutrophils Percent Auto 64.9 % (50.0-70.0); Platelet Count Result 193 K/mm3 (150-420); Red Blood Count 4.54 M/mm3 (4.70-6.10); Red Cell Distribution Width 12.6 % (11.6-14.4); White Blood Count 6.3 K/mm3 (4.8-10.8)
[2020-10-16] MEDS: SODIUM CHLORIDE 0.9% 3 ML NEB FOR INHALATION (00:25)
[2020-10-16] MEDS: IPRATROPIUM 0.5 MG/ALBUTEROL SULFATE 2.5 MG AMPUL.NEB 3 ML INHALATION ×4 (00:25→17:33)
[2020-10-16 00:26] LABS: Alanine Aminotransferase 92 U/L (16-63); Albumin Level 2.6 g/dL (3.4-5.0); Alkaline Phosphatase 71 U/L (46-116); Anion Gap 8 mmol/L (8-16); Aspartate Amino Transferase 58 U/L (15-37); Bilirubin,Total 1.1 mg/dL (0.00-1.00); Blood Urea Nitrogen 19 mg/dL (7-18); Calcium 8.2 mg/dL (8.5-10.1); Carbon Dioxide 26 mmol/L (21-32); Chloride 99 mmol/L (98-108); Estimated CRCL calculation 74 ml/min; Estimated Glomerular Filt Rate > 60; Glucose 98 mg/dL (70-99); Osmolality Calculated 278 mOsm/kg (285-295); Potassium 3.4 mmol/L (3.5-5.1); Sodium 133 mmol/L (136-145); Total Protein 6.8 g/dL (6.4-8.2); Troponin I < 0.02 ng/mL (0.00-0.056)
[2020-10-16 00:29] LABS: Lactic Acid Reflex 1.4 mmol/L (0.4-2.0)
[2020-10-16 00:37] LABS: BNP < 5 pg/mL (0-100)
--- NOTE | 2020-10-16 01:10 | PC.NURSE ---
Pt to [facility] for hospitalist services; Pt is alert and oriented x4 and he ambulated to the bathroom per self to void. Pt's lung sounds are diminished bilaterally with faint crackles heard in the upper lobes. Abdomen is soft and non tender with hypoactive bowel sounds x 4 quads. Pt becomes somewhat short of breath with activity and SAO2 is 94% with oxygen on at 3 liters per nasal cannula. Pt doesnt voice any other concerns at this time.
[2020-10-16] MEDS: SODIUM CHLORIDE 0.9% IV 1,000 ML 100 ML IV CONT (01:38)
--- NOTE | 2020-10-16 03:00 | PC.NURSE ---
Pt up to the bathroom per self to void. Pt back to bed per self.
[2020-10-16 05:15] LABS: Basophils Absolute Auto 0.01 K/mm3 (0.00-0.10); Basophils Percent Auto 0.2 % (0.0-1.0); Eosinophils Absolute Auto 0.01 K/mm3 (0.02-0.50); Eosinophils Percent Auto 0.2 % (1.0-6.0); Hematocrit 41.9 % (40.0-54.0); Immature Granulocyte Absolute 0.14 K/mm3 (0.00-0.00); Immature Granulocyte Percent A 2.6 % (0.0-0.0); Lymphocytes Absolute Auto 0.46 K/mm3 (1.10-4.50); Lymphocytes Percent Auto 8.6 % (18.0-42.0); Mean Corpuscular HGB Conc 35.8 g/dL (32.0-36.0); Mean Corpuscular Hemoglobin 33.6 pg (27.0-31.0); Mean Corpuscular Volume 93.9 fL (78.0-102.0); Monocytes Absolute Auto 0.24 K/mm3 (0.10-0.90); Monocytes Percent Auto 4.5 % (2.0-11.0); Neutrophils Absolute Auto 4.5 K/mm3 (1.7-7.2); Neutrophils Percent Auto 83.9 % (50.0-70.0); Platelet Count Result 191 K/mm3 (150-420); Red Blood Count 4.46 M/mm3 (4.70-6.10); Red Cell Distribution Width 12.5 % (11.6-14.4); White Blood Count 5.4 K/mm3 (4.8-10.8)
[2020-10-16 05:30] LABS: Alanine Aminotransferase 87 U/L (16-63); Albumin Level 2.6 g/dL (3.4-5.0); Alkaline Phosphatase 71 U/L (46-116); Anion Gap 9 mmol/L (8-16); Aspartate Amino Transferase 52 U/L (15-37); Blood Urea Nitrogen 18 mg/dL (7-18); Calcium 8.5 mg/dL (8.5-10.1); Carbon Dioxide 25 mmol/L (21-32); Chloride 100 mmol/L (98-108); Estimated CRCL calculation 77 ml/min; Estimated Glomerular Filt Rate > 60; Glucose 142 mg/dL (70-99); Osmolality Calculated 281 mOsm/kg (285-295); Potassium 3.9 mmol/L (3.5-5.1); Sodium 134 mmol/L (136-145); Total Protein 6.6 g/dL (6.4-8.2)
[2020-10-16] MEDS: methylPREDNISolone SOD SUCC 40 MG VIAL IV PUSH ×3 (05:59→17:32)
--- NOTE | 2020-10-16 06:48 | PC.NURSE ---
Pt given methylprednisolone 40 mg IVP as ordered; Zosyn 3.375 mg infusing as ordered.
--- NOTE | 2020-10-16 06:49 | PC.NURSE ---
Pt given a duoneb treatment as ordered which he tolerated well.
[2020-10-16] MEDS: amLODIPine BESYLATE 5 MG TABLET 10 MG PO (10:01)
[2020-10-16] MEDS: LOSARTAN POTASSIUM 50 MG TABLET PO (10:01)
[2020-10-16] MEDS: FOLIC ACID 1 MG TABLET PO (10:01)
[2020-10-16] MEDS: ACETAMINOPHEN 325 MG TABLET 650 MG PO ×2 (10:01→17:38)
[2020-10-16] MEDS: POTASSIUM CHLORIDE 20 MEQ TABLET PO (10:01)
[2020-10-16] MEDS: BENZONATATE 100 MG CAPSULE 200 MG PO ×3 (10:03→17:32)
--- NOTE | 2020-10-16 10:53 | PM.IMHP ---
H&P: HPI History of Present Illness Date/Time: 10/16/20 10:53 <ANDREW Ward - Last Filed: 10/16/20 12:44> Chief complaint: SHORTNESS OF BREATH <ANDREW Ward - Last Filed: 10/16/20 12:44> Narrative: Feliz Mcgovern is a 60 year old male that presented to our ED with complaints of shortness of breath and fatigue. Patient has a past medical history of rheumatoid arthritis and hypertension. Patient was recently admitted into our hospital on 10/09/2020 due to a syncopal episode and was diagnosed with Covid. Patient noted that since he was discharged on 10/11/2020 his shortness of breath and fatigue has worsened. He also noted that he had another syncopal episode while sitting on a toilet. He noted this time he did not sustain any injuries because he had a walker in front of him and his there to catch. Patient noted that he would attempt to ambulate around his home with a walker and became fatigued and short of breath. He also complains of a persistent nonproductive cough. He also noted that he had a low-grade fever in the 99 while at home. Patient also had a growth of coag negative Staphylococcus growth in 1 bottle of his blood culture. He is currently 94% on 3 L nasal cannula. The patient denies , CP, palpitation, extremity numbness, lightheadedness, dizziness, constipation, diarrhea, chills, or fever. <ANDREW Ward - Last Filed: 10/16/20 12:44> Review of Systems Review of Systems: All systems reviewed & are unremarkable except as noted in HPI and below (10 point system review) <ANDREW Ward - Last Filed: 10/16/20 12:44> [facility] Past Medical History Medical History: Medical History HTN (hypertension) Rheumatoid arthritis <ANDREW Ward - Last Filed: 10/16/20 12:44> Surgical History Surgical History: Surgical History No significant past surgical history <ANDREW Ward - Last Filed: 10/16/20 12:44> Social History Social History: Social History Years smoked: 10 Smoking status: Former smoker Tobacco type: cigarettes and smokeless tobacco Second hand tobacco smoke exposure: Yes Additional smoking assessment comments: Pt stopped smoking in 1979 and stopped using chewing tobacco in 2019 Alcohol intake: former Substance use: former Substance use type: does not use Gender identity (if verbalized by the patient): Male Sexual Orientation (if Verbalized by the Patient): Straight or Heterosexual Spiritual care concerns: No <ANDREW Ward - Last Filed: 10/16/20 12:44> Meds Home Medications and Allergies Home medications: Home Medications Medication Instructions Recorded Confirmed Type Orencia 125 mg SUBCUT WEEKLY 10/05/20 10/15/20 History amlodipine 10 mg PO DAILY 10/05/20 10/15/20 History folic acid 1 mg PO DAILY 10/05/20 10/15/20 History hydrochlorothiazide 25 mg PO DAILY 10/05/20 10/15/20 History losartan 50 mg PO DAILY 10/05/20 10/15/20 History methotrexate sodium 15 mg PO WEEKLY 10/05/20 10/15/20 History potassium chloride 20 meq PO DAILY #90 tablet 10/05/20 10/16/20 Rx prednisone 5 mg PO DAILY 10/05/20 10/16/20 History aspirin 81 mg PO DAILY 10/09/20 10/15/20 History azithromycin See Rx Instructions .ROUTE 10/11/20 10/15/20 Rx .COMPLEX #6 tablet <ANDREW Ward - Last Filed: 10/16/20 12:44> Allergies/Adverse reactions: Allergies Allergy/AdvReac Type Severity Reaction Status Date / Time No Known Allergies Allergy Verified 10/05/20 17:55 <ANDREW Ward - Last Filed: 10/16/20 12:44> Vital Signs Vital Signs - 24 hr 10/15/20 23:31 10/16/20 00:45 10/16/20 00:46 Temperature 97.9 F Pulse Rate 89 88 90 Respiratory Rate 20 20 20 Blood Pressure 122/73 Pulse Oximetry 93 94
[2020-10-17] VITALS (11 sets, daily range): BP systolic 114–133; BP diastolic 74–76; PULSE 71–85; RESP 12–24; TEMP 36.1–36.3; O2SAT 92–95
[2020-10-17] MEDS: methylPREDNISolone SOD SUCC 40 MG VIAL IV PUSH ×4 (00:59→17:46)
[2020-10-17] MEDS: IPRATROPIUM 0.5 MG/ALBUTEROL SULFATE 2.5 MG AMPUL.NEB 3 ML INHALATION ×4 (00:59→17:46)
[2020-10-17 05:40] LABS: Basophils Absolute Auto 0.01 K/mm3 (0.00-0.10); Basophils Percent Auto 0.1 % (0.0-1.0); Hematocrit 38.9 % (40.0-54.0); Hemoglobin 13.8 g/dL (14.0-18.0); Immature Granulocyte Absolute 0.06 K/mm3 (0.00-0.00); Immature Granulocyte Percent A 0.7 % (0.0-0.0); Lymphocytes Absolute Auto 0.59 K/mm3 (1.10-4.50); Lymphocytes Percent Auto 6.7 % (18.0-42.0); Mean Corpuscular HGB Conc 35.5 g/dL (32.0-36.0); Mean Corpuscular Hemoglobin 33.3 pg (27.0-31.0); Mean Platelet Volume 10.2 fl (8.7-11.0); Monocytes Absolute Auto 0.42 K/mm3 (0.10-0.90); Monocytes Percent Auto 4.8 % (2.0-11.0); Neutrophils Absolute Auto 7.7 K/mm3 (1.7-7.2); Neutrophils Percent Auto 87.7 % (50.0-70.0); Platelet Count Result 199 K/mm3 (150-420); Red Blood Count 4.14 M/mm3 (4.70-6.10); Red Cell Distribution Width 12.3 % (11.6-14.4); White Blood Count 8.8 K/mm3 (4.8-10.8)
[2020-10-17 05:58] LABS: Alanine Aminotransferase 85 U/L (16-63); Albumin Level 2.5 g/dL (3.4-5.0); Alkaline Phosphatase 68 U/L (46-116); Anion Gap 10 mmol/L (8-16); Aspartate Amino Transferase 35 U/L (15-37); Bilirubin,Total 0.6 mg/dL (0.00-1.00); Blood Urea Nitrogen 18 mg/dL (7-18); Calcium 8.4 mg/dL (8.5-10.1); Carbon Dioxide 25 mmol/L (21-32); Chloride 101 mmol/L (98-108); Estimated CRCL calculation 80 ml/min; Estimated Glomerular Filt Rate > 60; Glucose 177 mg/dL (70-99); Osmolality Calculated 287 mOsm/kg (285-295); Sodium 136 mmol/L (136-145); Total Protein 5.5 g/dL (6.4-8.2)
[2020-10-17] MEDS: POTASSIUM CHLORIDE 20 MEQ TABLET PO (09:47)
[2020-10-17] MEDS: amLODIPine BESYLATE 5 MG TABLET 10 MG PO (09:47)
[2020-10-17] MEDS: FOLIC ACID 1 MG TABLET PO (09:47)
[2020-10-17] MEDS: ACETAMINOPHEN 325 MG TABLET 650 MG PO (09:47)
[2020-10-17] MEDS: BENZONATATE 100 MG CAPSULE 200 MG PO ×3 (09:47→17:46)
[2020-10-17] MEDS: LOSARTAN POTASSIUM 50 MG TABLET PO (09:47)
[2020-10-17 11:45] LABS: Vancomycin Trough 10.1 ug/mL (10.0-15.0)
--- NOTE | 2020-10-17 12:04 | PM.IMPN ---
Progress Note: A&P Assessment and Plan (1) Bacteremia due to Gram-negative bacteria: Code(s): R78.81 - Bacteremia Status: Acute Assessment and Plan: 1 bottle blood culture from 10/09/2020 indicates coag staphylococcus sensitive to Bactrim Chest x-ray from 10/15/2020 indicates patchy interstitial and glass ground infiltrates now seen throughout both lungs. Previous CTA from 10/09 indicates Patchy bilateral groundglass opacities and consolidation with perihilar and lower lung predominance but without septal line thickening to suggest pulmonary edema is most likely related to multifocal pneumonia. Possibly secondary to Covid Patient discharged on 10/11 with azithromycin patient notes that today would have been his last day of azithromycin. Patient WBCs, lactic acid within normal limits. Procalcitonin pending 10/17/2020 patient is currently on Bactrim, patient to be discharged on the same when that time comes, PCT still pending, WBC still within normal limits (2) Rheumatoid arthritis: Code(s): M06.9 - Rheumatoid arthritis, unspecified Status: Acute Assessment and Plan: Continue prednisone 10/17/2020 no changes at this time (3) Hypertension: Code(s): I10 - Essential (primary) hypertension Status: Acute Assessment and Plan: Stable Continue Norvasc daily, hydrochlorothiazide 25 mg daily, and losartan 50 mg daily 10/17/2020 no changes to medications vital signs stable (4) Pneumonia: Qualifiers: Laterality: bilateral Lung location: unspecified part of lung Pneumonia type: due to unspecified organism Qualified Code(s): J18.9 - Pneumonia, unspecified organism Code(s): J18.9 - Pneumonia, unspecified organism Status: Acute Assessment and Plan: Chest x-ray from 10/15/2020 indicates patchy interstitial and glass ground infiltrates now seen throughout both lungs possibly residual from COVID-19 1 bottle blood culture from 10/09/2020 indicates coag staphylococcus sensitive to Bactrim Patient received Zosyn one-time, currently on vancomycin will DC vancomycin tomorrow and start Bactrim 10/17/2020 patient is on Bactrim, if patient has not been on Bactrim for the full course will be discharged on same, slight labored breathing as noted in assessment and subjective note above (5) COVID-19: Code(s): U07.1 - COVID-19 Status: Acute Assessment and Plan: Patient tested positive this day Patient tested positive for COVID-19 approximately September 30, 2020. Patient completed his 14 days of quarantine 10/17/2020 lab work shows patient was positive 10/09/2020 this may have been a repeat COVID test that was done too soon after initially being positive as noted above 09/30/2020 Subjective Date/time seen: 10/17/20 12:04 upon talking with the patient this morning he was back in bed had just returned from the restroom and did not have his oxygen on. He stated that he has felt his breathing was doing better however while talking with him he could almost not complete a sentence without taking a few labored breaths. Patient states he would like to stay in the hospital a little bit longer this time than last. Patient has no other complaints at this time. Review of Systems Constitutional: Constitutional: Reports no additional constitutional complaints, Denies body ache(s), Denies chills, Denies fatigue, Denies headache(s) and Denies weakness Cardiovascular: Cardiovascular: Reports no additional cardiovascular complaints, Denies chest pain, Denies chest pain at rest and Denies chest pain with activity Respiratory: Respiratory: Reports no additional respiratory complaints, Denies dyspnea, Denies dyspnea on exertion and Reports other (Admits to a little bit of labored breathing) Gastrointestinal: Gastrointestinal: Reports no additional gastrointestinal complaints Musculoskeletal: Musculoskeletal: Reports no additional musculoskeletal complaints Neurologi
[2020-10-18] VITALS (12 sets, daily range): BP systolic 108–120; BP diastolic 64–72; PULSE 69–109; RESP 16–20; TEMP 35.9–37.1; O2SAT 87–97
[2020-10-18] MEDS: methylPREDNISolone SOD SUCC 40 MG VIAL IV PUSH ×3 (00:53→12:00)
[2020-10-18] MEDS: IPRATROPIUM 0.5 MG/ALBUTEROL SULFATE 2.5 MG AMPUL.NEB 3 ML INHALATION ×3 (00:54→12:34)
[2020-10-18 06:06] LABS: Hematocrit 41.9 % (40.0-54.0); Hemoglobin 15.1 g/dL (14.0-18.0); Mean Corpuscular Hemoglobin 33.9 pg (27.0-31.0); Mean Corpuscular Volume 94.2 fL (78.0-102.0); Mean Platelet Volume 10.2 fl (8.7-11.0); Platelet Count Result 298 K/mm3 (150-420); Red Blood Count 4.45 M/mm3 (4.70-6.10); Red Cell Distribution Width 12.5 % (11.6-14.4); White Blood Count 17.3 K/mm3 (4.8-10.8)
[2020-10-18 06:29] LABS: Anion Gap 14 mmol/L (8-16); Blood Urea Nitrogen 22 mg/dL (7-18); Calcium 8.8 mg/dL (8.5-10.1); Carbon Dioxide 23 mmol/L (21-32); Chloride 99 mmol/L (98-108); Estimated CRCL calculation 73 ml/min; Estimated Glomerular Filt Rate 59; Glucose 135 mg/dL (70-99); Osmolality Calculated 287 mOsm/kg (285-295); Sodium 136 mmol/L (136-145)
[2020-10-18] MEDS: amLODIPine BESYLATE 5 MG TABLET 10 MG PO (09:04)
[2020-10-18] MEDS: LOSARTAN POTASSIUM 50 MG TABLET PO (09:04)
[2020-10-18] MEDS: POTASSIUM CHLORIDE 20 MEQ TABLET PO (09:04)
[2020-10-18] MEDS: FOLIC ACID 1 MG TABLET PO (09:04)
[2020-10-18] MEDS: BENZONATATE 100 MG CAPSULE 200 MG PO ×2 (09:05→12:00)
--- NOTE | 2020-10-18 10:07 | HOMEO2EVAL ---
Home Oxygen Evaluation RC: Home Oxygen (O2) Evaluation Start: 10/18/20 09:08 Freq: ONCE Status: Active Protocol: RPE Activity Type Activity Date Activity User E-Sign Co-Sign Detail Recorded Client Recorded Date Recorded By Document 10/18/20 09:48 GILBERT [id number] 10/18/20 10:07 SJB Document 10/18/20 09:49 GILBERT [id number] 10/18/20 10:07 SJB 10/18/20 10/18/20 09:48 09:49 Home O2 Evaluation Test Phase Resting Exercise Oxygen Delivery Room Air Room Air Pulse Oximetry (90-100 %) 93 90 Pulse Rate (60-100 beats/min) 94 109 H Activity Tolerance Good Rating of Perceived Dyspnea (PD) +1 Mild, +2 Mild, Some Noticeable to Difficulty, the Participant Noticeable to but Not to an the Observer Observer Rate of Perceived Exertion (PE) 11 Fairly light 12 Ambulation Distance (feet) 400 Home Oxygen Evaluation Comments Pt walked 400 ft pushing wheelchair on room air. Walking at a good rate and talking, patients Sp02 remained at 90% . HR up to 109 . Pt did have to stop once. PLB was encouraged, patient admitted that taking a deep breath hurt. He was re educated on the importance of deep breathing. Treatment Charges O2 Evaluation
--- NOTE | 2020-10-18 11:29 | P.DS_ITS ---
DS: Admitting Diagnosis Admitting Diagnosis Admitting Diagnosis: pneumonia bacteremia <Juve SolisRIVER Hall - Last Filed: 10/18/20 11:44> DS: Discharge Diagnosis Discharge Diagnosis (1) Bacteremia due to Gram-negative bacteria: Code(s): R78.81 - Bacteremia <Juve SandersonRENITA coyleC - Last Filed: 10/18/20 11:44> Status: Acute <Juve Limon RIVER Biggs - Last Filed: 10/18/20 11:44> Assessment and Plan: * 1 bottle blood culture from 10/09/2020 indicates coag staphylococcus sensitive to Bactrim * Chest x-ray from 10/15/2020 indicates patchy interstitial and glass ground infiltrates now seen throughout both lungs. Previous CTA from 10/09 indicates Patchy bilateral groundglass opacities and consolidation with perihilar and lower lung predominance but without septal line thickening to suggest pulmonary edema is most likely related to multifocal pneumonia. Possibly secondary to Covid * Patient discharged on 10/11 with azithromycin patient notes that today would have been his last day of azithromycin. * Patient WBCs, lactic acid within normal limits. Procalcitonin pending 10/17/2020 patient is currently on Bactrim, patient to be discharged on the same when that time comes, PCT still pending, WBC still within normal limits 10/18/2020 patient to be discharged today as noted above will continue Bactrim, PCT still pending <Juve SolisRIVER Hall - Last Filed: 10/18/20 11:44> (2) Rheumatoid arthritis: Code(s): M06.9 - Rheumatoid arthritis, unspecified <Juve SolisRIVER Hall - Last Filed: 10/18/20 11:44> Status: Acute <Juve SolisRIVER Hall - Last Filed: 10/18/20 11:44> Assessment and Plan: * Continue prednisone 10/17/2020 no changes at this time 10/18/2020 continues home medication as written <Juve SolisRIVER Hall - Last Filed: 10/18/20 11:44> (3) Hypertension: Code(s): I10 - Essential (primary) hypertension <Juve IrmaRIVER Hall - Last Filed: 10/18/20 11:44> Status: Acute <Juve Biggs [employer]-C - Last Filed: 10/18/20 11:44> Assessment and Plan: * Stable * Continue Norvasc daily, hydrochlorothiazide 25 mg daily, and losartan 50 mg daily 10/17/2020 no changes to medications vital signs stable 10/18/2020 patient to continue home medication <Juve Biggs [employer] - Last Filed: 10/18/20 11:44> (4) Pneumonia: Qualifiers: Laterality: bilateral Lung location: unspecified part of lung Pneumonia type: due to unspecified organism Qualified Code(s): J18.9 - Pneumonia, unspecified organism <Juve BiggsJAZMIN-C - Last Filed: 10/18/20 11:44> Code(s): J18.9 - Pneumonia, unspecified organism <Juve Biggs [employer] - Last Filed: 10/18/20 11:44> Status: Acute <Juve Biggs [employer]C - Last Filed: 10/18/20 11:44> Assessment and Plan: * Chest x-ray from 10/15/2020 indicates patchy interstitial and glass ground infiltrates now seen throughout both lungs possibly residual from COVID-19 * 1 bottle blood culture from 10/09/2020 indicates coag staphylococcus sensitive to Bactrim * Patient received Zosyn one-time, currently on vancomycin will DC vancomycin tomorrow and start Bactrim 10/17/2020 patient is on Bactrim, if patient has not been on Bactrim for the full course will be discharged on same, slight labored breathing as noted in assessment and subjective note above 10/18/2020 breathing did improve a little bit this morning patient was able to finish most sentences without having increased labored breathing as of yesterday, will discharge with home nebulizer D
--- NOTE | 2020-10-18 11:29 | PM.DS ---
DS: Admitting Diagnosis Admitting Diagnosis Admitting Diagnosis: pneumonia bacteremia <Juve IrmaRIVER Hall - Last Filed: 10/18/20 11:44> DS: Discharge Diagnosis Discharge Diagnosis (1) Bacteremia due to Gram-negative bacteria: Code(s): R78.81 - Bacteremia <Juve SolisRENITA HallC - Last Filed: 10/18/20 11:44> Status: Acute <Juve SolisRIVER Hall - Last Filed: 10/18/20 11:44> Assessment and Plan: 1 bottle blood culture from 10/09/2020 indicates coag staphylococcus sensitive to Bactrim Chest x-ray from 10/15/2020 indicates patchy interstitial and glass ground infiltrates now seen throughout both lungs. Previous CTA from 10/09 indicates Patchy bilateral groundglass opacities and consolidation with perihilar and lower lung predominance but without septal line thickening to suggest pulmonary edema is most likely related to multifocal pneumonia. Possibly secondary to Covid Patient discharged on 10/11 with azithromycin patient notes that today would have been his last day of azithromycin. Patient WBCs, lactic acid within normal limits. Procalcitonin pending 10/17/2020 patient is currently on Bactrim, patient to be discharged on the same when that time comes, PCT still pending, WBC still within normal limits 10/18/2020 patient to be discharged today as noted above will continue Bactrim, PCT still pending <Juve IrmaRIVER Hall - Last Filed: 10/18/20 11:44> (2) Rheumatoid arthritis: Code(s): M06.9 - Rheumatoid arthritis, unspecified <RIVER Biggs - Last Filed: 10/18/20 11:44> Status: Acute <RIVER Biggs - Last Filed: 10/18/20 11:44> Assessment and Plan: Continue prednisone 10/17/2020 no changes at this time 10/18/2020 continues home medication as written <RIVER Biggs - Last Filed: 10/18/20 11:44> (3) Hypertension: Code(s): I10 - Essential (primary) hypertension <RIVER Biggs - Last Filed: 10/18/20 11:44> Status: Acute <Juve BiggsJAZMIN-C - Last Filed: 10/18/20 11:44> Assessment and Plan: Stable Continue Norvasc daily, hydrochlorothiazide 25 mg daily, and losartan 50 mg daily 10/17/2020 no changes to medications vital signs stable 10/18/2020 patient to continue home medication <Juve BiggsJAZMIN-C - Last Filed: 10/18/20 11:44> (4) Pneumonia: Qualifiers: Laterality: bilateral Lung location: unspecified part of lung Pneumonia type: due to unspecified organism Qualified Code(s): J18.9 - Pneumonia, unspecified organism <Juve BiggsJAZMIN-C - Last Filed: 10/18/20 11:44> Code(s): J18.9 - Pneumonia, unspecified organism <Juve BiggsJAZMIN-C - Last Filed: 10/18/20 11:44> Status: Acute <Juve BiggsJAZMIN-C - Last Filed: 10/18/20 11:44> Assessment and Plan: Chest x-ray from 10/15/2020 indicates patchy interstitial and glass ground infiltrates now seen throughout both lungs possibly residual from COVID-19 1 bottle blood culture from 10/09/2020 indicates coag staphylococcus sensitive to Bactrim Patient received Zosyn one-time, currently on vancomycin will DC vancomycin tomorrow and start Bactrim 10/17/2020 patient is on Bactrim, if patient has not been on Bactrim for the full course will be discharged on same, slight labored breathing as noted in assessment and subjective note above 10/18/2020 breathing did improve a little bit this morning patient was able to finish most sentences without having increased labored breathing as of yesterday, will discharge with home nebulizer DuoNeb, patient did 30 minutes walk test and did not qualify for home oxygen <Juve SandersonJAZMIN coyle-C - Last Filed: 10/18/20 11:44> (5) COVID-19: Code(s): U07.1 - COVID-19 <Juve SandersonJAZMIN coyle-C - Last Filed: 10/18/20 11:44> Status: Acute <Juve SandersonJAZMIN coyle-C - Last Filed: 10/18/20 11:44> Assessment and Plan:
--- NOTE | 2020-10-18 19:38 | PM.EVENT ---
Event Note Event Note Event Note: I have examined the patient and reviewed the chart. I discussed the patient's care with Irma Biggs APN and agree with his assessment and plan.
--- NOTE | 2020-10-19 13:04 | PC.NURSE ---
Invalid phone number for discharge call back.
[2020-10-19 15:28] LABS: Procalcitonin 0.25 ng/mL (<0.10)
== END 2020-10-18 14:35 | disposition home or self-care (01) | DRG 177 ==
LOC: CHSED 10-16 00:41 → CHS2ND 10-18 08:09
PROVIDERS: Nurse Practitioner; Nurse Practitioner Family; Admitting Provider Emergency Medicine; Emergency Provider Emergency Medicine; PCP Internal Medicine; Visit Provider Emergency Medicine
DX: U07.1 COVID-19 (principal); J18.9 Pneumonia, unspecified organism; R78.81 Bacteremia; B95.8 Unspecified staphylococcus as the cause of diseases classified elsewhere; M06.9 Rheumatoid arthritis, unspecified; I10 Essential (primary) hypertension; Z87.891 Personal history of nicotine dependence
CPT/HCPCS: 36415; 71046; 80048; 80053; 80202; 83605; 83880; 84145; 84484; 85025; 85027; 93005; 94618; 94640; 96365; 96375; 97165; 97530; 99285; A9270; J2543; J2920; J2930; J3370; J7030

== ENCOUNTER 2021-04-06 01:27 | Emergency (ER) | payer BC, SELFPAY ==
--- NOTE | ~2021-04-06 | XR_ITS ---
EXAMINATION: XR chest 2V DATE: 04/06/2021 02:15 INDICATION: Chest pain. TECHNIQUE: Frontal and lateral views of the chest were obtained. COMPARISON: Chest 2 views 10/16/2020, chest CT 10/09/2020, chest 2 views 05/01/2005 FINDINGS: The chest demonstrates clear lungs without pneumonia, pleural effusion, or pneumothorax. Th e heart size is normal. IMPRESSION: 1. No acute cardiopulmonary disease. Reviewed, dictated and finalized at location A.
--- NOTE | 2021-04-06 01:29 | ECG_ITS ---
Measurements Intervals [place] Rate: 71 P: 32 DE: 205 QRS: -29 QRSD: 103 T: 29 QT: 389 QTc: 423 Interpretive Statements SINUS RHYTHM DELAYED PRECORDIAL R/S TRANSITION BORDERLINE ECG Electronically Signed On 04-06-2021 7:52:10 CDT by Wilbert Guaman D.O.
[2021-04-06 01:30] VITALS: BP 145/96; PULSE 69; RESP 20; TEMP 36.3; O2SAT 95
[2021-04-06 01:35] VITALS: PULSE 69
--- NOTE | 2021-04-06 01:46 | ED.CHESTPAIN ---
HPI - Chest Pain General Chief Complaint: Chest Pain Stated Complaint: chest pain Time Seen by Provider: 04/06/21 01:40 Source: patient and family Mode of arrival: ambulatory Limitations: no limitations History of Present Illness HPI narrative: Patient presents with moderately severe chest discomfort across upper chest. This developed at rest, is a weight like discomfort, and has been ongoing for several hours. He comes in because this has not improved at home. This has not been associated with any nausea, vomiting, diaphoresis, syncope or presyncope. Activity has not affected the discomfort much to make it better or worse. MD complaint: chest heaviness Pertinent past history: other (risk factors for CAD) Onset (ago): hour(s) Timing of current episode: constant Prior episodes: Yes Onset: during rest Pain location: other (hiogh in chest across chest) Pain radiation: none Severity: moderate Quality: tightness and heaviness Relieving factors: nothing Exacerbating factors: nothing Associated symptoms: dyspnea Treatment prior to arrival: none Risk Factors Coronary artery disease risk factors: none (Rheumatoid arthritis, ) Related Data Home Medications Medication Instructions Recorded Confirmed Orencia 125 mg SUBCUT WEEKLY 10/05/20 04/06/21 amlodipine 5 mg PO DAILY 10/05/20 04/06/21 folic acid 1 mg PO DAILY 10/05/20 04/06/21 hydrochlorothiazide 25 mg PO DAILY 10/05/20 04/06/21 methotrexate sodium 15 mg PO WEEKLY 10/05/20 04/06/21 prednisone 5 mg PO DAILY 10/05/20 04/06/21 benzonatate 100 mg PO TID PRN 04/06/21 04/06/21 irbesartan 300 mg PO HS 04/06/21 04/06/21 tramadol 50 mg PO PRN PRN 04/06/21 04/06/21 Allergies Allergy/AdvReac Type Severity Reaction Status Date / Time No Known Allergies Allergy Verified 10/05/20 17:55 Review of Systems Constitutional: Constitutional: Reports no additional constitutional complaints Eyes: Eyes: Reports no additional eye complaints ENT: Reports system reviewed and no additional complaints, except as documented Cardiovascular: Cardiovascular: Reports no additional cardiovascular complaints Respiratory: Respiratory: Reports no additional respiratory complaints Gastrointestinal: Gastrointestinal: Reports no additional gastrointestinal complaints Genitourinary: Genitourinary: Reports no additional male genitourinary complaints Musculoskeletal: Musculoskeletal: Reports no additional musculoskeletal complaints Integumentary/Breasts: Skin/Breast: Reports system reviewed and no additional complaints, except as docu Neurologic: Reports system reviewed and no additional complaints, except as documented Psychiatric: Psychiatric: Reports no additional psychiatric complaints Endocrine: Endocrine: Reports no additional endocrine complaints Hematologic/Lymphatic: Hematologic/Lymphatic: Reports no additional hematologic/lymphatic complaints Allergic/Immunologic: Allergic/Immunologic: Reports no additional allergic/immunologic complaints PMFSH Past Medical History Medical History HTN (hypertension) Rheumatoid arthritis Surgical History Surgical History No significant past surgical history Family History Family History (Updated 04/06/21 @ 05:39 by David Cloud MD) Other Family history non-contributory Social History Social History Years smoked: 10 Smoking status: Former smoker Tobacco type: cigarettes and smokeless tobacco Second hand tobacco smoke exposure: Yes Additional smoking assessment comments: Pt stopped smoking in 1979 and stopped using chewing tobacco in 2019 Alcohol intake: former Substance use: former Substance use type: does not use Gender identity (if verbalized by the patient): Male Spiritual care concerns: No Exam Const: General: cooperative and healthy appearing Nutritional Ap
[2021-04-06] MEDS: ASPIRIN 81 MG CHEWABLE TABLET 324 MG PO (01:50)
[2021-04-06] MEDS: KETOROLAC (*BKC) 60 MG/2 ML VIAL IM (01:51)
[2021-04-06 02:02] LABS: Basophils Absolute Auto 0.05 K/mm3 (0.00-0.10); Basophils Percent Auto 0.4 % (0.0-1.0); Eosinophils Absolute Auto 0.33 K/mm3 (0.02-0.50); Eosinophils Percent Auto 2.8 % (1.0-6.0); Hematocrit 44.9 % (40.0-54.0); Hemoglobin 15.8 g/dL (14.0-18.0); Immature Granulocyte Absolute 0.07 K/mm3 (0.00-0.00); Immature Granulocyte Percent A 0.6 % (0.0-0.0); Lymphocytes Absolute Auto 2.21 K/mm3 (1.10-4.50); Lymphocytes Percent Auto 18.7 % (18.0-42.0); Mean Corpuscular HGB Conc 35.2 g/dL (32.0-36.0); Mean Corpuscular Hemoglobin 32.8 pg (27.0-31.0); Mean Corpuscular Volume 93.3 fL (78.0-102.0); Mean Platelet Volume 10.1 fl (8.7-11.0); Monocytes Absolute Auto 0.89 K/mm3 (0.10-0.90); Monocytes Percent Auto 7.5 % (2.0-11.0); Neutrophils Absolute Auto 8.2 K/mm3 (1.7-7.2); Platelet Count Result 215 K/mm3 (150-420); Red Blood Count 4.81 M/mm3 (4.70-6.10); Red Cell Distribution Width 13.5 % (11.6-14.4); White Blood Count 11.8 K/mm3 (4.8-10.8)
[2021-04-06 02:16] LABS: D Dimer 0.36 mg/L (0.19-0.50)
[2021-04-06 02:23] LABS: Alanine Aminotransferase 42 U/L (16-63); Albumin Level 3.5 g/dL (3.4-5.0); Alkaline Phosphatase 85 U/L (46-116); Anion Gap 9 mmol/L (8-16); Aspartate Amino Transferase 18 U/L (15-37); Bilirubin,Total 0.7 mg/dL (0.00-1.00); Blood Urea Nitrogen 17 mg/dL (7-18); Calcium 8.6 mg/dL (8.5-10.1); Carbon Dioxide 27 mmol/L (21-32); Chloride 101 mmol/L (98-108); Estimated CRCL calculation 77 ml/min; Estimated Glomerular Filt Rate > 60; Glucose 97 mg/dL (70-99); NT Pro B Type Natriuretic Pept 15 pg/mL (0-125); Osmolality Calculated 285 mOsm/kg (285-295); Potassium 3.5 mmol/L (3.5-5.1); Sodium 137 mmol/L (136-145); Total Protein 6.4 g/dL (6.4-8.2); Troponin I 4.2 ng/L (0.00-60.4)
[2021-04-06 06:02] LABS: Troponin I < 4.0 ng/L (0.00-60.4)
[2021-04-06 06:05] VITALS: BP 106/58; PULSE 65; RESP 20; O2SAT 98
== END 2021-04-06 06:15 | disposition home or self-care (01) ==
PROVIDERS: Emergency Provider Emergency Medicine
DX: R07.89 Other chest pain (principal); I10 Essential (primary) hypertension; M06.9 Rheumatoid arthritis, unspecified; Z87.891 Personal history of nicotine dependence
CPT/HCPCS: 36415; 71046; 80053; 83880; 84484; 85025; 85380; 87081; 87880; 93005; 96372; 99283; 99284; A9270; J1885

== ENCOUNTER 2021-10-18 09:51 | Outpatient (RCR) | payer BC, SELFPAY ==
--- NOTE | 2021-10-18 11:12 | PTOPEVAL ---
Thank you for referring Feliz Mcgovern to [facility].? The patient is scheduled to be seen for therapy? __3__x/week for 12 visits. Please review, sign, date and return this plan of care DENISSE. I agree with and certify that the following plan of care is medically necessary. Referring Physician Date Admitting Provider: Attending Provider: Juve Rodriguez Referring Provider: *PT Outpatient Evaluation Start: 10/18/21 10:06 Freq: Status: Active Protocol: Document 10/18/21 10:07 SADE (Rec: 10/18/21 11:00 SADE [id number]) Therapy Assessment Status Assessment Status Assessment Status Evaluation Outpatient Past Medical History Neurological History Hx Neurological Disorders No Significant History Cardiovascular History Hx Hypercholesterolemia Yes Hx Hypertension Yes Respiratory History Hx Chronic Obstructive Pulmonary Disease Yes (COPD) Hx Pneumonia Yes: has yearly Gastrointestinal History Hx Gastroesophageal Reflux Disease Yes Genitourinary History Hx Kidney Stones Yes Musculoskeletal History Hx Joint Replacement Yes: right knee Hx Rheumatoid Arthritis Yes Hematological History Hx Hematological Disorders No Significant History Endocrine History Hx Endocrine Disorders No Significant History HEENT History Hx HEENT Disorders No Significant History Integumentary History Hx Skin Disorders No Significant History Reproductive History Hx Reproductive Disorders No Significant History Psychosocial History Hx Psychiatric Disorders No Significant History Pain History Has Past Pain Affected Your Daily Life Yes Anesthesia History Hx Anesthesia Reactions No Significant History Evaluation Information Problem Diagnosis left TKA Onset 09/27/21 Subjective Information Pt. reports that he underwent Query Text:As Reported By Patient/ left TKA on 09/27/21. He Family reports that he has been doing HH therapy and was discharged last week Sunday. He reports that he has been progressing well. He reports that is still has constant pain. He reports that he is no longer taking any pain medication. He reports sleep is difficult due to pain. She reports that he is still using a cane. He is currently off work. He reports that his goal is to be able to walk
== END 2021-11-17 10:25 | disposition home or self-care (01) ==
LOC: CHSPT 09:51
DX: M17.12 Unilateral primary osteoarthritis, left knee (principal)
CPT/HCPCS: 97014; 97016; 97110; 97112; 97161; 97530; G0283